=== PATIENT | female | born 1950 | race Caucasian/White ===

== ENCOUNTER 2017-04-01 13:46 | Emergency (ER) | payer MEDICARE ==
[~2017-04-01] VITALS: Ht 152.4 cm; Wt 64.9 kg
[2017-04-01 13:55] VITALS: BP_SYST 137
[2017-04-01] MEDS ORDERED: KETOROLAC TROMETHAMINE 60 MG/2 ML VIAL IM ONE (14:45)
[2017-04-01 15:40] VITALS: BP_SYST 128
== END 2017-04-01 15:40 | disposition home or self-care (01) ==
LOC: SED 13:46
DX: S22.32XA Fracture of one rib, left side, initial encounter for closed fracture (principal); V89.2XXA Person injured in unspecified motor-vehicle accident, traffic, initial encounter; Y93.89 Activity, other specified; Y92.410 Unspecified street and highway as the place of occurrence of the external cause; Y99.8 Other external cause status; S46.812A Strain of other muscles, fascia and tendons at shoulder and upper arm level, left arm, initial encounter
CPT/HCPCS: 71100; 72050; 73030; 73080; 99284; J1885

== ENCOUNTER 2017-04-02 17:57 | Emergency (ER) | payer MEDICARE ==
[~2017-04-02] VITALS: Ht 165.1 cm; Wt 64.9 kg
[2017-04-02 18:04] VITALS: BP_SYST 157
[2017-04-02 18:30] VITALS: BP_SYST 157
== END 2017-04-02 18:30 | disposition home or self-care (01) ==
LOC: SED 17:57
DX: M79.622 Pain in left upper arm (principal)
CPT/HCPCS: 99281